=== PATIENT | male | born 1955 | race Caucasian/White ===

== ENCOUNTER → 2017-07-02 | Outpatient (CLI) | payer BC ==
[~2017-07-02] MED LIST: METF500 PO; ONDA8 PO; OXYACE5T PO; PRAV10 PO; RXOXYACE PO; SULTRIDS PO
== END ==
LOC: PLD 07:56 → LAB SHORT 07:56
DX: D48.5 Neoplasm of uncertain behavior of skin (principal)
CPT/HCPCS: 88305; 88312

== ENCOUNTER 2018-07-06 10:00 | Day surgery (SDC) | payer MEDICARE, BC ==
[~2018-07-06] VITALS: Ht 177.8 cm; Wt 91.0 kg
[~2018-07-06 10:00] MED LIST changes: +CYAN500 PO; +FINA5 PO; +FISH OIL 1,0001 EAC2 PO; +FLUO10 PO; +RIVASTIGMINE3 MG PO; +THERA1 EACH PO; +Vitamin D2000 UNIT PO
--- NOTE | 2018-07-06 10:45 | NUR ---
07/06/18 1045 Arik Tsang PATIENT DETERMINED TO BE ASA APPROPRIATE FOR MODERATE SEDATION PRIOR TO START OF PROCEDURE BY . 3-LEAD EKG REVIEWED WITH PHYSICIAN PRIOR TO START OF PROCEDURE.PATIENT CONFIRMS NPO STATUS AND AGREES WITH SCHEDULED PROCEDURE.History, Chart, Medications and Allergies reviewed before start of procedure.MONITOR INTACT WITH CONTINUOUS PULSE OXIMETRY AND INTERMITTENT BP.O2 VIA N/C INTACT THROUGHOUT SEDATION/PROCEDURE.
--- NOTE | 2018-07-06 10:51 | NUR ---
Ambulatory in Day Surgery. Patient states colon prep results clear. History, Chart, Medications and Allergies reviewed before start of procedure. Lungs clear T/O to Auscultation. Patient confirms NPO status and agrees with scheduled surgery. Pre-Op teaching done. Pt verbalizes understanding. Patient States Post-Procedure ride home has been arranged.
--- NOTE | 2018-07-06 11:29 | NUR ---
PT TO STEP. PT SLEEPY, OPENS EYES TO VOICE. AT BEDSIDE. DENIES PAIN.
--- NOTE | 2018-07-06 12:23 | NUR ---
WRITTEN AND VERBAL D/C INSTUCTIONS GIVEN TO PT WITH STATED UNDERSTANDING.
== END 2018-07-06 22:46 | disposition home or self-care (01) ==
LOC: ORSCMMR 10:00 → ORD 11:00 → ORSCMMR 22:46
PROVIDERS: Internal Medicine Gastroenterology
PROC: 0DBL8ZX Excision of Transverse Colon, Via Natural or Artificial Opening Endoscopic, Diagnostic (ICD-10-PCS; principal; 2018-07-06 11:00)
DX: Z12.11 Encounter for screening for malignant neoplasm of colon (principal); D12.3 Benign neoplasm of transverse colon; N40.0 Benign prostatic hyperplasia without lower urinary tract symptoms; G47.33 Obstructive sleep apnea (adult) (pediatric); F03.90 Unspecified dementia, unspecified severity, without behavioral disturbance, psychotic disturbance, mood disturbance, and anxiety; F32.9 Major depressive disorder, single episode, unspecified; Z79.899 Other long term (current) drug therapy
CPT/HCPCS: 88305; J2250; J3010; J7120

== ENCOUNTER → 2021-02-22 | Outpatient (CLI) | payer MEDICARE, BC | END | disposition home or self-care (01) | LOC: LAB SHORT 14:53 | DX: C44.319 Basal cell carcinoma of skin of other parts of face (principal) | CPT/HCPCS: 88305 ==

== ENCOUNTER 2022-09-02 23:08 | Emergency (ER) | payer MEDICARE, BC ==
[~2022-09-02] VITALS: Ht 180.3 cm; Wt 81.7 kg
[2022-09-02] MEDS ORDERED: CLOBETASOL EMOL15 G1 (23:43)
[2022-09-02] MEDS ORDERED: TAMS.4ER PO (23:44)
[2022-09-02] MEDS ORDERED: ALPR.25 PO (23:45)
[2022-09-03 03:30] VITALS: BP 122/68
== END 2022-09-03 03:30 | disposition home or self-care (01) ==
LOC: ER 23:08
DX: S00.83XA Contusion of other part of head, initial encounter (principal); F03.911 Unspecified dementia, unspecified severity, with agitation; N40.0 Benign prostatic hyperplasia without lower urinary tract symptoms; W19.XXXA Unspecified fall, initial encounter; Y92.199 Unspecified place in other specified residential institution as the place of occurrence of the external cause; Z87.820 Personal history of traumatic brain injury; Z79.899 Other long term (current) drug therapy
CPT/HCPCS: 70450; 72125; 82947; 96372; 99285-25; J1790

== ENCOUNTER → 2022-12-31 | Outpatient (CLI) | payer MEDICARE, BC ==
[~2022-12-31] MED LIST changes: +ALPR.25 PO; +CLOBETASOL EMOL15 G1; +TAMS.4ER PO
[2022-12-31 15:36] LABS: Appearance, Urine Turbid (Clear); Bilirubin, Urine Neg (Neg); Blood, Urine Neg (Neg); Color, Urine Yellow (P-Yellow); Glucose Qualitative, Urine Neg (Neg); Ketones, Urine Neg (Neg); Leukocyte Esterase, Urine Neg (Neg); Nitrite, Urine Neg (Neg); Protein, Urine 1+ (Neg); Urobilinogen, Urine NORM (Normal)
[2022-12-31 15:57] LABS: Amorphous Heavy (0-Heavy); Bacteria Rare /hpf; Red Blood Cells, Urine 0-2 /hpf (0-2); Squamous Epithelial Cells Rare /hpf (Few); White Blood Cells, Urine 0-2 /hpf (0-5)
[2022-12-31 15:58] LABS: Calcium Oxalate Crystals Mod /hpf
[2022-12-31 16:00] LABS: Mucus Light (0-Heavy)
== END ==
LOC: LAB 12:55 → LAB SHORT 12:55
PROVIDERS: Physician Assistant
DX: N39.0 Urinary tract infection, site not specified (principal)
CPT/HCPCS: 81001